=== PATIENT | male | born 2005 | race Caucasian/White ===

== ENCOUNTER 2024-12-23 09:28 | Emergency (ER) | payer OTHER, SELFPAY ==
--- NOTE | ~2024-12-23 | XR_ITS ---
EXAMINATION: XR foot LT min 3V DATE: 12/23/2024 09:52 INDICATION: Left foot injury TECHNIQUE: Dorsoplantar, two oblique and lateral views of the left foot were obtained. COMPARISON: None. FINDINGS: Alignment is normal. No fracture. Joint spaces are normal. Soft tissues are unremarkable. IMPRESSION: 1. Negative left foot radiographs. Reviewed, dictated and finalized at location A.
[2024-12-23 09:41] VITALS: BP 142/72; PULSE 84; RESP 16; TEMP 36.1; O2SAT 100
--- NOTE | 2024-12-23 09:59 | ED_ITS ---
HPI - Extremity Injury (Lower) General Chief Complaint: Extremity Injury, Lower Stated Complaint: L FOOT INJURY Time Seen by Provider: 12/23/24 09:45 Source: patient Mode of arrival: ambulatory Limitations: no limitations History of Present Illness HPI Narrative: 19 yo M presents with pain to L foot. Pt was playing football yesterday and rolled L foot. Ambulatory with limp. Arrived wear ankle brace from home. ROM and distal NV intact. All systems reviewed and negative except as noted above. Related Data Home Medications ?Medication ?Instructions ?Recorded ?Confirmed ?Last Taken ?Type No Home Medications 12/23/24 12/23/24 U nknown History Allergies Allergy/AdvReac Type Severity Reaction Status Date / Time No Known Allergies Allergy Verified 12/23/24 09:44 [facility] Comments At time of signature, agree with nursing past medical, surgical, social and family history. There is no relevant family history pertinent to the presenting complaint. Exam Narrative: GENERAL: This is a well-nourished, well-developed patient, in no apparent distress. HEAD: normocephalic, atraumatic. EYES: PERRL. Sclera clear/white. Vision is grossly intact. EARS: External ears normal NOSE: External nose normal NECK: Neck supple, non-tender without lymphadenopathy, masses or thyromegaly. CARDIOVASCULAR: Regular rate and rhythm without murmurs, gallops, or rubs. RESPIRATORY: Clear to auscultation. Breath sounds equal bilaterally. No wheezes, rales, or rhonchi. SKIN: warm, Dry, intact with no suspicious lesions or rash, good texture and turgor. NEURO: awake, alert, and oriented to person, place and time. There were no obvious focal neurologic abnormalities. EXTREMITIES: Tenderness to lateral aspect of left foot, mid 4th and 5th metatarsal. No swelling or deformity noted. Range of motion and distal neurovascularly intact. Course Course Level of Care: Express Care Visit Vital Signs Vital signs: Vital Signs Temperature 36.1 C L 12/23/24 09:41 Pulse Rate 84 12/23/24 09:41 Respiratory Rate 16 12/23/24 09:41 Blood Pressure 142/72 H 12/23/24 09:41 Pulse Oximetry 100 12/23/24 09:41 Temperature 36.1 C L 12/23/24 09:41 Pulse Rate 84 12/23/24 09:41 Respiratory Rate 16 12/23/24 09:41 Blood Pressure 142/72 H 12/23/24 09:41 Pulse Oximetry 100 12/23/24 09:41 Reviewed MDM - Extremity Injury (Lower) MDM Narrative Medical decision making narrative: X-ray of left foot negative for fracture. Recommend rest, ice, [id number] pain medications. Will follow-up with primary care physician as needed. Differential Diagnosis Differential diagnosis: Likely other (Foot fracture, foot sprain) Imaging Data My impression: agree with radiologist Radiologist's impression: EXAMINATION: XR foot LT min 3V DATE: 12/23/2024 09:52 INDICATION: Left foot injury TECHNIQUE: Dorsoplantar, two oblique and lateral views of the left foot were obtained. COMPARISON: None. FINDINGS: Alignment is normal. No fracture. Joint spaces are normal. Soft tissues are unremarkable. IMPRESSION: 1. Negative left foot radiographs. Discharge Plan Discharge Clinical Impression: Sprain of foot, left Qualifiers: Encounter type: initial encounter Qualified Code(s): S93.602A - Unspecified sprain of left foot, initial encounter Patient Disposition: Home Condition: Stable Instructions: Foot Sprain (ED) Additional Instructions: The x-ray of your left foot is negative for fracture. Take ibuprofen or Tylenol every 6-8 hours as needed for pain. Apply ice as needed for pain. Avoid activities that increase pain to left foot such as running and jumping. If pain is not improving in the next 3-4 weeks follow-up with primary care physician for further evaluation. Patient Language: Portuguese Prescriptions: No Action No Home Medications Follow-up/Referrals: Mark Crawley MD [Physician, Family Practice] Referral Note: Schedule appointment primary care physician to establish care Stand Alone Forms: Work/School Release IP Time of Disposition: 10:04
== END 2024-12-23 10:08 | disposition home or self-care (01) ==
PROVIDERS: Emergency Provider Nurse Practitioner Family
DX: S93.602A Unspecified sprain of left foot, initial encounter (principal); X50.9XXA Other and unspecified overexertion or strenuous movements or postures, initial encounter; Y93.61 Activity, american tackle football
CPT/HCPCS: 73630; 99203; G0463